=== PATIENT | female | born 1930 | race Caucasian/White ===

== ENCOUNTER 2020-07-12 15:35 | Emergency (ER) | payer MEDICARE, OTHER ==
[~2020-07-12] VITALS: Ht 162.6 cm; Wt 78.0 kg
[2020-07-12 15:37] VITALS: BP 233/90
[2020-07-12 16:30] LABS: ABSOLUTE NEUTROPHILS 5.5 thou/uL (1.4-8.2); BASOPHILS 0.9 % (0.0-2.0); EOSINOPHILS 1.2 % (0.0-3.0); HEMATOCRIT 39.1 % (37.0-47.0); HEMOGLOBIN 12.7 gm/dL (12.0-15.0); MCH 26.9 pg (26.0-34.0); MCHC 32.5 g/dL (28.0-37.0); MCV 82.9 fL (80.0-100.0); MONOCYTES 6.6 % (1.0-8.0); PLATELET COUNT 292 thou/uL (150-400); POLYS 66.3 % (36.0-66.0); RBC 4.71 mil/uL (4.20-5.00); WBC 8.3 thou/uL (4.0-11.0)
[2020-07-12 16:34] LABS: ANION GAP 12 mmol/L (7-16); BUN 50 mg/dL (7-18); CALCIUM 9.1 mg/dL (8.5-10.1); CHLORIDE 104 mmol/L (98-107); CO2 21 mmol/L (21-32); CREATININE 2.3 mg/dL (0.6-1.0); GLUCOSE 223 mg/dL (74-106); POTASSIUM 4.6 mmol/L (3.5-5.1); SODIUM 137 mmol/L (136-145)
[2020-07-12 16:42] LABS: TROPONIN-I <0.06 ng/mL (<0.06)
[2020-07-12 16:55] LABS: URINE BILIRUBIN NEGATIVE (Negative); URINE BLOOD TRACE (Negative); URINE CLARITY CLEAR; URINE COLOR YELLOW; URINE GLUCOSE-RANDOM* TRACE (Negative); URINE KETONES NEGATIVE (Negative); URINE LEUKOCYTES-REFLEX TRACE (Negative); URINE NITRITE-REFLEX NEGATIVE (Negative); URINE PROTEIN (DIPSTICK) 2+ (Negative); URINE UROBILINOGEN 0.2 E.U./dl (0.2-1.0)
[2020-07-12 17:00] LABS: CRYSTALS None Seen /LPF (None Seen); SQUAMOUS 4-10 Moderate /LPF (0-3); URINE RBC None Seen /HPF (0-2); URINE WBC-REFLEX 6-15 Few /HPF (0-5)
[2020-07-12 23:21] VITALS: BP 153/71
--- NOTE | 2020-07-14 07:39 | EKG ---
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: : 1930 Requested By: Anam Szymanski Order Number: [id number] MD: Yosef Pool Measurements Intervals [place] Rate: 57 P: -48 NV: 276 QRS: 35 QRSD: 93 T: 137 QT: 439 QTc: 428 Interpretive Statements Sinus rhythm Prolonged NV interval LVH with secondary repolarization abnormality Anterior Q waves, possibly due to LVH Compared to ECG 09/02/2002 17:14:36 First degree AV block now present Electronically Signed On 07-14-2020 7:39:15 BILLBOARD INSTALLER by Yosef Pool [email or web address] <ELECTRONICALLY SIGNED> By: Yosef Pool MD, [facility] 07/14/20 0739 1556 1556 Yosef Pool MD, [facility] /EPI
--- NOTE | 2020-07-14 07:58 | NUR ---
ORDERS RECEIVED FOR P.T. TO EVAL AND TREAT. PT DISCHARGED PRIOR TO P.T EVALUATION.
== END 2020-07-13 00:12 | disposition short-term general hospital (02) ==
LOC: ER 15:35 → EROBS 19:00 → ER 07-13 00:12
PROVIDERS: Nurse Practitioner
DX: I16.0 Hypertensive urgency (principal); E03.9 Hypothyroidism, unspecified; N39.0 Urinary tract infection, site not specified; I10 Essential (primary) hypertension; E11.9 Type 2 diabetes mellitus without complications; Z90.710 Acquired absence of both cervix and uterus; Z95.1 Presence of aortocoronary bypass graft

== ENCOUNTER 2021-04-07 16:39 | Emergency (ER) | payer OTHER ==
[~2021-04-07] VITALS: Ht 162.6 cm; Wt 78.9 kg
[2021-04-07 17:32] LABS: ABSOLUTE NEUTROPHILS 6.2 thou/uL (1.4-8.2); BASOPHILS 0.7 % (0.0-2.0); EOSINOPHILS 1.1 % (0.0-3.0); HEMATOCRIT 37.7 % (37.0-47.0); HEMOGLOBIN 12.2 gm/dL (12.0-15.0); LYMPHOCYTES 16.5 % (24.0-44.0); MCH 27.9 pg (26.0-34.0); MCHC 32.4 g/dL (28.0-37.0); MCV 86.3 fL (80.0-100.0); MONOCYTES 7.7 % (1.0-8.0); PLATELET COUNT 259 thou/uL (150-400); RBC 4.37 mil/uL (4.20-5.00); RDW 15.9 % (10.5-14.5); WBC 8.4 thou/uL (4.0-11.0)
[2021-04-07 17:38] LABS: ANION GAP 9 mmol/L (7-16); BUN 52 mg/dL (7-18); CALCIUM 8.8 mg/dL (8.5-10.1); CHLORIDE 97 mmol/L (98-107); CO2 25 mmol/L (21-32); CREATININE 3.2 mg/dL (0.6-1.0); GLUCOSE 220 mg/dL (74-106); SODIUM 131 mmol/L (136-145)
[2021-04-07 17:48] LABS: ALBUMIN 3.3 g/dL (3.4-5.0); SGOT 24 U/L (15-37); SGPT 39 U/L (14-59); TOTAL BILIRUBIN 0.6 mg/dL (0.2-1.0); TOTAL PROTEIN 6.8 g/dL (6.4-8.2); TROPONIN-I <0.06 ng/mL (<0.06)
[2021-04-07 18:41] LABS: URINE BILIRUBIN NEGATIVE (Negative); URINE BLOOD NEGATIVE (Negative); URINE CLARITY CLEAR; URINE COLOR YELLOW; URINE GLUCOSE-RANDOM* TRACE (Negative); URINE KETONES NEGATIVE (Negative); URINE LEUKOCYTES-REFLEX NEGATIVE (Negative); URINE NITRITE-REFLEX NEGATIVE (Negative); URINE PROTEIN (DIPSTICK) 2+ (Negative); URINE SPECIFIC GRAVITY 1.015 (1.005-1.035); URINE UROBILINOGEN 0.2 E.U./dl (0.2-1.0)
[2021-04-07 18:49] LABS: BACTERIA-REFLEX 1-9 Few /HPF (None Seen); CASTS None Seen /LPF (None Seen); SQUAMOUS 4-10 Moderate /LPF (0-3); URINE WBC-REFLEX 0-5 Rare /HPF (0-5); YEAST-REFLEX Present (None Seen)
[2021-04-07 18:50] LABS: CRYSTALS None Seen /LPF (None Seen); URINE RBC None Seen /HPF (NONE SEEN)
[2021-04-07 20:13] VITALS: BP 190/55
--- NOTE | 2021-04-08 07:37 | EKG ---
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 : 1930 Requested By: Maxim Snowden Order Number: [id number] MD: Rajeev Alvarez Measurements Intervals [place] Rate: 61 P: 0 AZ: 65 QRS: 50 QRSD: 105 T: 134 QT: 482 QTc: 486 Interpretive Statements Sinus rhythm Short [place] interval Anteroseptal infarct, old Repol abnrm suggests ischemia, lateral leads Compared to ECG 07/12/2020 15:56:35 Short [place] interval now present Myocardial infarct finding now present Possible ischemia now present First degree AV block no longer present Left ventricular hypertrophy no longer present Q waves no longer present Electronically Signed On 04-08-2021 7:37:15 CDT by Rajeev Alvarez [email or web address] <ELECTRONICALLY SIGNED> By: Rajeev Alvarez MD, [facility] 04/08/21 0737 1730 1730 Rajeev Alvarez MD, [facility] /EPI
== END 2021-04-07 20:17 | disposition home or self-care (01) ==
LOC: ER 16:39
PROVIDERS: Emergency Medicine
DX: R06.00 Dyspnea, unspecified (principal); I26.99 Other pulmonary embolism without acute cor pulmonale; I10 Essential (primary) hypertension; E11.9 Type 2 diabetes mellitus without complications; Z20.822 Contact with and (suspected) exposure to COVID-19; Z90.710 Acquired absence of both cervix and uterus; Z95.1 Presence of aortocoronary bypass graft

== ENCOUNTER 2021-04-27 08:20 | Inpatient (IN) | payer OTHER ==
[~2021-04-27] VITALS: Ht 165.1 cm; Wt 80.3 kg
[2021-04-27 08:21] VITALS: BP 157/58
[2021-04-27 08:52] LABS: ABSOLUTE NEUTROPHILS 5.5 thou/uL (1.4-8.2); BASOPHILS 0.3 % (0.0-2.0); EOSINOPHILS 4.6 % (0.0-3.0); HEMATOCRIT 34.5 % (37.0-47.0); LYMPHOCYTES 14.8 % (24.0-44.0); MCH 27.2 pg (26.0-34.0); MCHC 31.9 g/dL (28.0-37.0); MCV 85.2 fL (80.0-100.0); MONOCYTES 7.7 % (1.0-8.0); PLATELET COUNT 295 thou/uL (150-400); POLYS 72.6 % (36.0-66.0); RBC 4.06 mil/uL (4.20-5.00); RDW 16.1 % (10.5-14.5); WBC 7.6 thou/uL (4.0-11.0)
[2021-04-27 09:24] LABS: CALCIUM 8.7 mg/dL (8.5-10.1); CREATININE 3.5 mg/dL (0.6-1.0); POTASSIUM 3.3 mmol/L (3.5-5.1)
[2021-04-27] MEDS ORDERED: ALPRAZOLAM XR3 MG PO (09:25)
[2021-04-27] MEDS ORDERED: NORVASC 2.5 MG2.5 M1 PO (09:26)
[2021-04-27] MEDS ORDERED: AMIODARONE150 MG/101 PO (09:26)
[2021-04-27] MEDS ORDERED: LIPITOR10 MG PO (09:27)
[2021-04-27] MEDS ORDERED: ELIQUIS2.5 MG PO (09:27)
[2021-04-27] MEDS ORDERED: ASA81BEC PO (09:27)
[2021-04-27] MEDS ORDERED: CARVEDILOL6.25 M1 PO (09:28)
[2021-04-27] MEDS ORDERED: LASIX 40 MG TAB40 MG PO (09:28)
[2021-04-27] MEDS ORDERED: HYDRALAZINE 5050 MG PO (09:29)
[2021-04-27] MEDS ORDERED: HUMALOG100 UNIT/1 SUBQ (09:29)
[2021-04-27] MEDS ORDERED: LEVO-T25 MCG PO (09:29)
[2021-04-27 09:35] LABS: ALBUMIN 3.1 g/dL (3.4-5.0); TOTAL BILIRUBIN 0.5 mg/dL (0.2-1.0); TOTAL PROTEIN 6.5 g/dL (6.4-8.2)
[2021-04-27 09:53] LABS: APTT 28.2 Seconds (24.5-32.8); INR 0.96; PROTIME 10.5 Seconds (10.5-12.1)
[2021-04-27 14:11] VITALS: BP 163/65
--- NOTE | 2021-04-27 14:22 | 2DMMODE ---
[facility] [address] [place] [address] 2 D/M-MODE ECHOCARDIOGRAM Name: ROGELIO GALLAGHER Room #: 170-12 ADM IN M.R.#: [id number] Admission: 04/27/21 Attend Phys: Jack Flanagan MD Discharge: Date of : [birth year] Report #: [id number] THIS REPORT FOR: cc: FAM - Family physician unknown FAM - Family physician unknown Rajeev Alvarez MD [facility] ~ APPROVED REPORT Study performed: 04/27/2021 13:16:51 EXAM: Comprehensive 2D, Doppler, and color-flow Echocardiogram Patient Location: ER Status: routine BSA: 1.92 HR: 53 bpm BP: 114/63 mmHg Rhythm: NSR/SANDY Indications Short of breath, edema, CHF. Hx: CABG, CHF, PVD, Afib 2D Dimensions RVDd: 38.63 mm IVSd: 12.89 (7-11mm) LVOT Diam: 19.81 (18-24mm) LVDd: 49.47 mm PWd: 12.83 (7-11mm) Ascending Ao: 33.96 (22-36mm) LVDs: 30.78 (25-40mm) Left Atrium: 45.23 (27-40mm) Aortic Root: 28.18 mm Volumes Left Atrial Volume (Systole) Single Plane 4CH: 101.51 mL Single Plane 2CH: 69.93 mL LA ESV Index: 48.00 mL/m2 Aortic Valve AoV Peak Tanner.: 1.38 m/s AO Peak Gr.: 7.67 mmHg LVOT Max P.88 mmHg LVOT Max V: 0.98 m/s ISAK Vmax: 2.19 cm2 Mitral Valve [facility] [address] [place] [address] 2 D/M-MODE ECHOCARDIOGRAM Name: ROGELIO GALLAGHER Room #: 170-12 ADM IN [facility].#: [id number] Admission: 04/27/21 Attend Phys: Jack Flanagan MD Discharge: Date of : [birth year] Report #: [id number] E/A Ratio: 2.1 MV Decel. Time: 193.03 ms MV E Max Tanner.: 0.98 m/s MV A Tanner.: 0.47 m/s MV PHT: 55.98 ms IVRT: 73.82 ms Pulmonary Valve PV Peak Tanner.: 1.11 m/s PV Peak Gr.: 4.97 mmHg Pulmonary Vein P Vein S: 0.39 m/s P Vein D: 0.76 m/s P Vein S/D Ratio: 0.51 Tricuspid Valve TR Peak Tanner.: 3.55 m/s RAP Estimate: 7.00 mmHg TR Peak Gr.: 50.53 mmHg PA Pressure: 57.00 mmHg Left Ventricle The left ventricle is normal size. There is normal LV segmental wall motion. Mild concentric left ventricular hypertrophy. Left ventricular systolic function is normal. LVEF is 55-60%. Severe diastolic dysfunction is present. Right Ventricle The right ventricle is normal size. The right ventricular systolic function is normal. Atria Left atrium is moderate to severely dilated. The right atrium size is normal. Aortic Valve The Aortic valve is moderately sclerotic. Trace aortic regurgitation. There is no aortic valvular stenosis. Mitral Valve Mitral valve leaflets are mildly thickened. Mild mitral annular calcification. Moderate mitral regurgitation. No evidence of mitral valve stenosis. Tricuspid Valve The tricuspid valve is normal in structure. Mild to moderate tricuspid regurgitation. Estimated PAP is 57mmHg. [facility] [address] [place] [address] 2 D/M-MODE ECHOCARDIOGRAM Name: ROGELIO GALLAGHER Room #: 170-12 ADM IN M.R.#: [id number] Admission: 04/27/21 Attend Phys: Jack Flanagan MD Discharge: Date of : [birth year] Report #: [id number] Pulmonic Valve The pulmonary valve is normal in structure. Mild pulmonic regurgitation. Great Vessels The aortic root is normal in size. The ascending aorta is normal in size. IVC is normal in size and collapses <50% with inspiration. Pericardium There is no pericardial effusion. <Conclusion> Normal left ventricular size, mild LVH Ejection fraction 50-55% Grade 4 dysfunction with pseudonormalization pattern Normal right ventricular size/function Left atrium moderately to severely dilated Color-flow Doppler study was performed of the aortic/mitral/tricuspid/pulmonary valve Normal aortic valve structure and function Moderate mitral valve insufficiency Mild to moderate tricuspid valve insufficiency Pulmonary systolic pressure estimated 57 mmHg No pericardial effusion Normal aortic root size <ELECTRONICALLY SIGNED> By: Rajeev Alvarez MD, FACC 04/27/211420 20 20 Rajeev Alvarez MD, FACC /INF
--- NOTE | 2021-04-27 15:15 | EKG ---
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 : 1930 Requested By: Saravanan Schuler Order Number: [id number] MD: Rajeev Alvarez Measurements Intervals [place] Rate: 54 P: 262 NM: 380 QRS: 49 QRSD: 121 T: 167 QT: 522 QTc: 495 Interpretive Statements Sinus or ectopic atrial rhythm Prolonged NM interval Nonspecific intraventricular conduction delay Anteroseptal infarct, age indeterminate Lateral leads are also involved Baseline wander in lead(s) V1 Compared to ECG 04/07/2021 17:30:29 Ectopic atrial rhythm now present First degree AV block now present Intraventricular conduction delay now present Sinus rhythm no longer present Electronically Signed On 04-27-2021 15:15:10 CDT by Rajeev Alvarez [email or web address] <ELECTRONICALLY SIGNED> By: Rajeev Alvarez MD, FAC 04/27/21 1515 0904 0904 Rajeev Alvarez MD, FAC /EPI
[2021-04-27] MEDS ORDERED: LEVEMIR100 UNIT/1 SUBQ (22:27)
[2021-04-28 02:32] VITALS: BP 161/52
[2021-04-28 04:30] VITALS: BP 170/50; BP 189/79
[2021-04-28 07:30] VITALS: BP 191/76
[2021-04-28 09:47] VITALS: BP 167/60
[2021-04-28 10:52] LABS: CREATININE 3.6 mg/dL (0.6-1.0); PHOSPHORUS 3.8 mg/dL (2.6-4.7); POTASSIUM 3.5 mmol/L (3.5-5.1)
[2021-04-28 15:51] VITALS: BP 181/69
[2021-04-28 21:32] VITALS: BP 159/51
[2021-04-29 05:36] LABS: ALBUMIN 2.7 g/dL (3.4-5.0); CALCIUM 8.3 mg/dL (8.5-10.1); CREATININE 3.8 mg/dL (0.6-1.0); PHOSPHORUS 3.9 mg/dL (2.5-4.9); POTASSIUM 3.3 mmol/L (3.5-5.1)
[2021-04-29 07:45] VITALS: BP 179/57
[2021-04-29 09:25] VITALS: BP 148/48
[2021-04-29] MEDS ORDERED: CARVEDILOL12.5 MG PO (13:45)
[2021-04-29] MEDS ORDERED: DEMADEX20 MG PO (13:45)
[2021-04-29 15:36] VITALS: BP 140/44
[2021-04-29 15:40] VITALS: BP 148/48
[2021-04-29 17:07] VITALS: BP 148/48
== END 2021-04-29 18:15 | disposition home health service (06) | DRG 291 ==
LOC: ER 08:20 → EROBS 09:56 → 4W 09:56
PROVIDERS: Emergency Medicine; Internal Medicine Nephrology; ADMIT Internal Medicine; ATTEND Internal Medicine
DX: I13.2 Hypertensive heart and chronic kidney disease with heart failure and with stage 5 chronic kidney disease, or end stage renal disease (principal); I50.33 Acute on chronic diastolic (congestive) heart failure; N18.6 End stage renal disease; N17.0 Acute kidney failure with tubular necrosis; E11.22 Type 2 diabetes mellitus with diabetic chronic kidney disease; I25.10 Atherosclerotic heart disease of native coronary artery without angina pectoris; E78.5 Hyperlipidemia, unspecified; I48.0 Paroxysmal atrial fibrillation; F41.1 Generalized anxiety disorder; E87.6 Hypokalemia; I65.29 Occlusion and stenosis of unspecified carotid artery; R53.81 Other malaise; E03.9 Hypothyroidism, unspecified; I16.0 Hypertensive urgency; G89.29 Other chronic pain; M54.9 Dorsalgia, unspecified; M54.2 Cervicalgia; H35.30 Unspecified macular degeneration; F32.9 Major depressive disorder, single episode, unspecified; E11.51 Type 2 diabetes mellitus with diabetic peripheral angiopathy without gangrene; E66.9 Obesity, unspecified; Z90.710 Acquired absence of both cervix and uterus; Z95.1 Presence of aortocoronary bypass graft; Z68.29 Body mass index [BMI] 29.0-29.9, adult
CPT/HCPCS: 10045

== ENCOUNTER 2021-07-07 06:02 | Emergency (ER) | payer OTHER ==
[~2021-07-07] VITALS: Ht 162.6 cm; Wt 76.2 kg
[~2021-07-07 06:02] MED LIST: ALPRAZOLAM XR3 MG PO; AMIODARONE150 MG/101 PO; ASA81BEC PO; CARVEDILOL12.5 MG PO; CARVEDILOL6.25 M1 PO; DEMADEX20 MG PO; ELIQUIS2.5 MG PO; HUMALOG100 UNIT/1 SUBQ; HYDRALAZINE 5050 MG PO; LASIX 40 MG TAB40 MG PO; LEVEMIR100 UNIT/1 SUBQ; LEVO-T25 MCG PO; LIPITOR10 MG PO; NORVASC 2.5 MG2.5 M1 PO
[2021-07-07] MEDS ORDERED: ALPRAZOLAM 0.50.5 M1 PO (06:35)
[2021-07-07] MEDS ORDERED: LIDODERM1 EACH TOP (06:54)
[2021-07-07] MEDS ORDERED: FLEXERIL PO (06:54)
[2021-07-07 08:15] VITALS: BP 168/78
== END 2021-07-07 08:19 | disposition home or self-care (01) ==
LOC: ER 06:02
DX: M54.31 Sciatica, right side (principal); E11.9 Type 2 diabetes mellitus without complications; I11.0 Hypertensive heart disease with heart failure; I50.30 Unspecified diastolic (congestive) heart failure; Z90.710 Acquired absence of both cervix and uterus; Z95.1 Presence of aortocoronary bypass graft; Z79.82 Long term (current) use of aspirin; Z79.4 Long term (current) use of insulin; Z79.899 Other long term (current) drug therapy; Z79.891 Long term (current) use of opiate analgesic; Z91.09 Other allergy status, other than to drugs and biological substances

== ENCOUNTER 2021-10-24 14:54 | Emergency (ER) | payer OTHER ==
[~2021-10-24] VITALS: Ht 157.5 cm; Wt 81.7 kg
[~2021-10-24 14:54] MED LIST changes: +ALPRAZOLAM 0.50.5 M1 PO; +FLEXERIL PO; +LIDODERM1 EACH TOP
[2021-10-24 15:45] LABS: ABSOLUTE NEUTROPHILS 4.9 thou/uL (1.4-8.2); BASOPHILS 1.1 % (0.0-2.0); EOSINOPHILS 1.4 % (0.0-3.0); HEMATOCRIT 43.8 % (37.0-47.0); HEMOGLOBIN 13.9 gm/dL (12.0-15.0); LYMPHOCYTES 22.4 % (24.0-44.0); MCH 26.7 pg (26.0-34.0); MCHC 31.8 g/dL (28.0-37.0); MONOCYTES 5.9 % (1.0-8.0); PLATELET COUNT 189 thou/uL (150-400); POLYS 69.2 % (36.0-66.0); RBC 5.22 mil/uL (4.20-5.00); RDW 16.1 % (10.5-14.5); WBC 7.1 thou/uL (4.0-11.0)
[2021-10-24 15:55] LABS: CALCIUM 9.1 mg/dL (8.5-10.1); CREATININE 3.2 mg/dL (0.6-1.0); POTASSIUM 3.8 mmol/L (3.5-5.1)
[2021-10-24 16:05] LABS: ALBUMIN 3.1 g/dL (3.4-5.0); TOTAL BILIRUBIN 0.7 mg/dL (0.2-1.0); TOTAL PROTEIN 6.7 g/dL (6.4-8.2)
[2021-10-24 16:30] LABS: URINE BILIRUBIN NEGATIVE (Negative); URINE BLOOD TRACE (Negative); URINE CLARITY CLEAR; URINE COLOR YELLOW; URINE GLUCOSE-RANDOM* TRACE (Negative); URINE KETONES NEGATIVE (Negative); URINE LEUKOCYTES-REFLEX NEGATIVE (Negative); URINE NITRITE-REFLEX NEGATIVE (Negative); URINE PROTEIN (DIPSTICK) 2+ (Negative); URINE UROBILINOGEN 0.2 E.U./dl (0.2-1.0)
[2021-10-24 16:34] LABS: SQUAMOUS 4-10 Moderate /LPF (0-3); URINE WBC-REFLEX 0-5 Rare /HPF (0-5)
[2021-10-24 16:35] LABS: CASTS None Seen /LPF (None Seen); CRYSTALS None Seen /LPF (None Seen); URINE RBC 1-2 Rare /HPF (NONE SEEN)
[2021-10-24 18:23] VITALS: BP 169/83
--- NOTE | 2021-10-26 07:38 | EKG ---
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 : 1930 Requested By: Abundio Amaral Order Number: [id number] MD: Rajeev Alvarez Measurements Intervals [place] Rate: 54 P: [place]: QRS: 10 QRSD: 122 T: 127 QT: 493 QTc: 468 Interpretive Statements Atrial flutter Abnormal T, consider ischemia, lateral leads Baseline wander in lead(s) V2 Compared to ECG 04/27/2021 09:04:41 T-wave abnormality now present Possible ischemia now present Myocardial infarct finding no longer present Electronically Signed On 10-26-2021 7:37:45 SENIOR MANAGER by Rajeev Alvarez [email or web address] <ELECTRONICALLY SIGNED> By: Rajeev Alvarez MD, [facility] 10/26/21 0737 1501 1501 Rajeev Alvarez MD, [facility] /EPI
== END 2021-10-24 18:35 | disposition home or self-care (01) ==
LOC: ER 14:54
PROVIDERS: Physician Assistant
DX: I13.0 Hypertensive heart and chronic kidney disease with heart failure and stage 1 through stage 4 chronic kidney disease, or unspecified chronic kidney disease (principal); Z20.822 Contact with and (suspected) exposure to COVID-19; I50.9 Heart failure, unspecified; E11.22 Type 2 diabetes mellitus with diabetic chronic kidney disease; N18.9 Chronic kidney disease, unspecified; Z90.710 Acquired absence of both cervix and uterus; Z95.1 Presence of aortocoronary bypass graft; Z90.49 Acquired absence of other specified parts of digestive tract; Z79.82 Long term (current) use of aspirin; Z79.4 Long term (current) use of insulin; Z79.899 Other long term (current) drug therapy